=== PATIENT | male | born 1995 | race Caucasian/White ===

== ENCOUNTER 2020-06-07 02:44 | Emergency (ER) | payer BC ==
[~2020-06-07] VITALS: Ht 177.8 cm; Wt 135.6 kg
--- NOTE | 2020-06-07 03:01 | NUR ---
PT CAME TO THE ED C/O INTERMITTENT SHARP MIDSTERNAL CHEST PAIN X 30 MINS AGO WHILE WATCHING TV. PT STATES PAIN IS 7/10 PS. -N/V -DIAPHORESIS. PT AAOX4, VSS, RESPIRATIONS EVEN AND UNLABORED ON RA W/ NAD NOTED. PT CONNECTED TO HTE MONITOR AND POX
--- NOTE | 2020-06-07 03:05 | NUR ---
WORK ORDER SORTING CLERK AT BEDSIDE FOR BLOOD DRAW
[2020-06-07 03:18] LABS: BASOPHILS % (AUTO) 0.6 % (0.0-2.0); EOSINOPHILS % (AUTO) 2.4 % (0.0-6.0); HEMATOCRIT 48 % (39-51); HEMOGLOBIN 16.4 g/dL (13.5-17.5); LYMPHOCYTES # (AUTO) 2.6 /CMM (0.8-4.8); MEAN CORPUSCULAR HGB CONC 34 g/dl (31.0-36.0); MEAN CORPUSCULAR VOLUME 93 fL (80-96); MONOCYTES # (AUTO) 0.9 /CMM (0.1-1.30); MONOCYTES % (AUTO) 14.2 % (2.0-12.0); NEUTROPHILS # (AUTO) 2.8 /CMM (1.8-8.9); NEUTROPHILS % (AUTO) 42.8 % (43.0-81.0); PLATELET COUNT (AUTO) 210 /CMM (150-450); RED BLOOD CELL COUNT(AUTO) 5.15 MIL/uL (4.5-6.0); WHITE BLOOD COUNT (AUTO) 6.5 K/uL (4.3-11.0)
--- NOTE | 2020-06-07 03:19 | NUR ---
XRAY AT BEDSIDE
--- NOTE | 2020-06-07 03:19 | NUR ---
EKG AT BEDSIDE
[2020-06-07 03:24] LABS: CALCIUM, SERUM 8.6 mg/dL (8.5-10.1); CARBON DIOXIDE 27 mmol/L (21-32); CHLORIDE 103 mmol/L (98-107); GLUCOSE 131 mg/dL (74-106); SODIUM SERUM 139 mmol/L (136-145); UREA NITROGEN, BLOOD 19 mg/dL (7-18)
--- NOTE | 2020-06-07 05:45 | NUR ---
Patient discharged to home in stable condition. Written and verbal after care instructions given. Patient verbalizes understanding of instruction.pt. ambulatory with a steady gait
[2020-06-07 05:46] VITALS: BP 126/79
== END 2020-06-07 05:47 | disposition home or self-care (01) ==
LOC: ER 02:47
DX: R07.89 Other chest pain (principal); Z90.89 Acquired absence of other organs; Z98.890 Other specified postprocedural states
CPT/HCPCS: 36415; 71045-TC; 80048-TC; 84484-TC; 85025-TC